=== PATIENT | female | born 1990 | race Caucasian/White ===

== ENCOUNTER → 2017-07-16 | Outpatient (CLI) | payer OTHER ==
[~2017-07-16] MED LIST: IOHEXOL 350 MG/ML 100ML IJ ONE
[2017-07-16 08:50] VITALS: BP 129/83
[2017-07-16 09:25] VITALS: BP 135/85
== END | disposition home or self-care (01) ==
LOC: Rad HDHVI 08:44
PROVIDERS: ATTEND Internal Medicine Cardiovascular Disease
DX: I70.1 Atherosclerosis of renal artery (principal); I10 Essential (primary) hypertension
CPT/HCPCS: 82565; 93306; 96374; G0463; Q9967